=== PATIENT | male | born 1985 | race Hispanic/Latino ===

== ENCOUNTER 2016-08-03 09:00 | Inpatient (IN) | payer MEDICAID, OTHER ==
[2016-08-03 09:00] VITALS: BMI 21.1
[2016-08-03 09:05] VITALS: O2SAT 98
[2016-08-03 10:23] LABS: RBC URINE < 1 /hpf (0-3); URINE BILIRUBIN NEGATIVE (NEGATIVE); URINE BLOOD NEGATIVE (NEGATIVE); URINE COLOR Yellow (YELLOW); URINE GLUCOSE (UA) NORMAL (Normal); URINE KETONE NEGATIVE (NEGATIVE); URINE LEUKOCYTE ESTERASE NEG Leu/uL (Negative); URINE PROTEIN NEGATIVE (NEGATIVE); URINE UROBILINOGEN NORMAL mg/dL (0.2-1.0); WBC URINE 1 /hpf (0-5)
[2016-08-03 10:29] LABS: BASO # 0.1 K/uL (0.0-0.2); BASO % 0.5 % (0.0-2.0); EOS # 0.3 K/uL (0.0-0.7); EOS % 3.2 % (0.0-4.0); HEMATOCRIT 41.3 % (35.0-51.0); LYMPH % 19.5 % (20.0-40.0); MEAN CELL VOLUME 89.6 fL (80.0-94.0); MEAN CORPUSCULAR HEMOGLOBIN 30.8 pg (27.0-31.0); MEAN CORPUSCULAR HGB CONC 34.4 g/dL (33.0-37.0); MEAN PLATELET VOLUME 7.5 fL (7.2-11.7); MONO # 1.3 K/uL (0.0-0.8); MONO % 12.4 % (0.0-10.0); RED CELL DISTRIBUTION WIDTH 12.7 % (11.5-14.5); WHITE BLOOD COUNT 10.2 K/uL (4.8-10.8)
--- NOTE | 2016-08-03 10:35 | C.PDOC ---
History Of Present Illness 30 y/o male presents to the ED requesting detox from heroin. Pt also reports suicidal thoughts and having visual hallucinations, "seeing shadows." Pt last used heroin this morning. Denies suicidal plan or any other complaints. Denies any other drug use. Time Seen by Provider: 08/03/16 09:55 Chief Complaint (Nursing): Substance Abuse History Per: Patient History/Exam Limitations: no limitations Onset/Duration Of Symptoms: Hrs Current Symptoms Are (Timing): Still Present Suicide/Self Injury Attempted (Context): None Modifying Factor(s): Narcotics Severity: Mild Associated Symptoms: Suicidal Thoughts. denies: Suicidal Plan Involuntary Hold By: None Recent travel outside of the [place]: No Past Medical History Reviewed: Historical Data, Nursing Documentation, Vital Signs Vital Signs: Last Vital Signs Temp 98.4 F 08/03/16 09:04 Pulse 82 08/03/16 09:04 Resp 20 08/03/16 09:04 BP 136/87 08/03/16 09:04 Pulse Ox 98 08/03/16 10:39 - Medical History PMH: Asthma - [facility] Procedures INJECT/INFUSE NEC (02/21/05) Family History: States: Unknown Family Hx - Social History Hx Alcohol Use: No Hx Substance Use: Yes Review Of Systems Psych: Positive for: Suicidal ideation, Other (visual hallucinations) Physical Exam - Physical Exam Appears: Non-toxic, No Acute Distress, Other (no signs of withdrawal) Skin: Warm, Dry, No Rash Head: Atraumatic, Normacephalic Throat: Normal Neck: Normal, Normal ROM, Supple Chest: Symmetrical Cardiovascular: Rhythm Regular, No Murmur Respiratory: Normal Breath Sounds, No Rales, No Rhonchi, No Wheezing Gastrointestinal/Abdominal: Normal Exam, Soft, No Tenderness Extremity: Bilateral: Atraumatic Neurological/Psych: Oriented x3, Normal Speech ED Course And Treatment - Laboratory Results Result Diagrams: 08/03/16 10:34 08/03/16 10:16 O2 Sat by Pulse Oximetry: 98 (room air) Pulse Ox Interpretation: Normal Medical Decision Making Medical Decision Making: Labs ordered and reviewed. In my clinical judgment patient is medically cleared and stable for psychiatric admission. cannery worker contacted for evaluation. As per CW patient is to be admitted. Patient will be admitted under Dr Dewitt service for depression and opiate dependence Disposition - Disposition Disposition: HOSPITALIZED Disposition Time: 11:10 Condition: STABLE - POA Present On Arrival: None - Clinical Impression Clinical Impression: Depression, Opiate dependence - PA / NUCLEAR PROCESS ENGINEER / Resident Statement MD/DO has reviewed & agrees with the documentation as recorded. - Scribe Statement The provider has reviewed the documentation as recorded by the Scribfanny Goddard All medical record entries made by the Michaelibfanny were at my direction and personally dictated by me. I have reviewed the chart and agree that the record accurately reflects my personal performance of the history, physical exam, medical decision making, and the department course for this patient. I have also personally directed, reviewed, and agree with the discharge instructions and disposition. Decision To Admit - Pt Status Changed To: Hospital Disposition Of: Inpatient - Admit Certification Admit to Inpatient:: After my assessment, the patient will require hospitalization for at least two midnights. This is because of the severity of symptoms shown, intensity of services needed, and/or the medical risk in this patient being treated as an outpatient. - InPatient: Physician Admission Certification: I certify that this patient requires 2 or more midnights of care for the following reason:: Patient with depression and expressed suicidal thoughts. Patient will be admitted under Dr Dewitt service - . Bed Request Type: Psychiatry Admitting Physician: Katherin Dewitt Patient Diagnosis: Opiate dependence, Depression
[2016-08-03 10:39] LABS: CHLORIDE 89 mmol/L (98-107)
[2016-08-03 10:40] LABS: POTASSIUM 4.2 mmol/L (3.6-5.2); SODIUM 132 mmol/L (132-148)
[2016-08-03 10:42] LABS: ALB/GLOB RATIO 1.7 (1.0-2.1); ALKALINE PHOSPHATASE 59 U/L (38-126); AST/SGOT 100 U/L (17-59); BILIRUBIN,TOTAL 0.8 mg/dL (0.2-1.3); CARBON DIOXIDE 32 mmol/L (22-30); GFR AFRICAN-AMERICAN > 60; TOTAL PROTEIN 7.6 g/dL (6.3-8.3)
[2016-08-03 10:43] LABS: ALCOHOL SERUM < 10 mg/dl (0-10); ALT/SGPT 225 U/L (21-72); BLOOD UREA NITROGEN 10 mg/dL (9-20); GLUCOSE,RANDOM 132 mg/dL (75-110)
[2016-08-03] MEDS ORDERED: Aluminum Hydroxide/Magnesium Hydroxide Susp (30 mL) PO PRN (12:15)
--- NOTE | 2016-08-03 12:18 | PCM.PSYCH ---
Initial Psychiatric Evaluation - Initial Psychiatric Evaluation Type of Admission: Voluntary Legal Status: Capacity Chief Complaint (in patient's own words): I was feeling depressed and suicidal' History of Present Illness and Precipitating Events: This is a 30 yo CM, single currently homeless and unemployed, who came to the [facility] ED because of suicidal ideation with plan to overdose on heroin. Patient reports that he was discharged from [facility] almost 2 years ago. Soon after discharge from the hospital he stopped taking medication and relapsed on heroin. Patient reports of sniffing almost 10 bags of heroin on a daily basis. Yesterday he abused 10 bags of heroin became increasingly depressed and developed suicidal ideation with plan to overdose, so he came to the hospital to get help. He reports depressed mood, feelings of hopelessness and helplessness poor sleep and poor appetite. He denies any auditory or visual hallucinations and denies any manic or psychotic symptoms. He reports withdrawal symptoms including anxiety, headaches, nausea, vomiting, abdominal cramps and back pain. He denies any other substance abuse. Past medical history None reported Current Medications: Active Medications Generic Name Dose Route Start Last Admin Trade Name Freq PRN Reason Stop Dose Admin Al Hydrox/Mg Hydrox/Simethicone 30 ml 08/03/16 12:15 Maalox 30 Ml PO TID PRN Indigestion / Heartburn Clonidine HCl 0.1 mg 08/03/16 12:15 Catapres PO Q8 PRN COWS Score More or Equal to 5 Diphenhydramine HCl 50 mg 08/03/16 12:17 Benadryl PO Q6 PRN Extra Pyramidal Symptoms Hydroxyzine HCl 25 mg 08/03/16 12:17 Atarax PO Q6 PRN Agitation Loperamide HCl 2 mg 08/03/16 12:15 Imodium PO Q8 PRN Diarrhea Methadone HCl 20 mg 08/03/16 12:15 Methadone PO 08/03/16 12:16 ONCE ONE Nicotine 1 patch 08/03/16 12:15 Nicoderm Cq TD DAILY ELOISE Ondansetron HCl 4 mg 08/03/16 12:15 Zofran Tab PO Q8 PRN Nausea/Vomiting Pneumococcal Polyvalent Vaccine 0.5 ml 08/06/16 10:00 Pneumovax 23 Vaccine IM 08/06/16 10:01 .ONCE ONE Trazodone HCl 50 mg 08/03/16 22:00 Desyrel PO HS ELOISE Past Psychiatric History - Past Psychiatric History Previous Treatment History: Inpatient Pertinent Medical Hx (Current Medical&Sleep Prob, Allergies): Allergies Allergy/AdvReac Type Severity Reaction Status Date / Time No Known Allergies Allergy Verified 08/03/16 09:04 Albuterol HFA [Ventolin HFA 90 mcg/actuation (8 g)] 2 puff INH BID 12/27/13 No Known Home Med [No Known Home Med] 09/14/14 Review of Systems - Review of Systems All systems: reviewed and no additional remarkable complaints except - Psychiatric Psychiatric: Anxiety, Irritability, Suicidal Ideation Mental Status Examination - Personal Presentation Personal Presentation: Looks stated age - Affect Affect: Constricted, Depressed - Motor Activity Motor Activity: Calm - Reliability in Providing Information Reliability in Providing Information: Good - Speech Speech: Organized - Mood Mood: Depressed, Anxious - Formal Thought Process Formal Thought Process: No Impairment - Obsessions/Compulsions Obsessions: No Compulsions: No - Cognitive Functions Orientation: Person, Place, Situation, Time Sensorium: Alert Attention/Concentration: Attentive Abstract Thinking: Sheridan Estimate of Intelligence: Below average Judgement: Imparied, as evidence by: Poor judgement, Imparied, as evidence by: Lack of insight into illness - Risk Risk: Suicidal, Withdrawal, Diminished functioning - Limitations Limitations: Living alone DSM 5 DX - DSM 5 DSM 5 Diagnosis: 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 Opiate use disorder severe Opiate withdrawal - Recommended/Plan of Treatment Treatment Recommendations and Plan of Treatment: 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
--- NOTE | 2016-08-04 15:51 | PCM.PYCHPN ---
Psychiatric Progress Note - Psychiatric Progress Note Patient seen today, length of contact: 16 min Patient Chief Complaint: I'm still feeling depressed Problems Identified/Issues Discussed: Patient seen and evaluated, chart reviewed and discussed with the nurse. As per the staff, patient still appears isolated, depressed and withdrawn. Patient still reports depressed mood and reports at times feelings of hopelessness or helplessness. He reports withdrawal symptoms including cramps, back pain and sweating. He is compliant with medications and denies any side effects. Supportive therapy and psychoeducation were given. Medication Change: Yes (Methadone taper) Medical Record Reviewed: Yes Mental Status Examination - Cognitive Function Orientation: Person, Place, Situation, Time Memory: Intact Attention: WNL Concentration: Poor Association: WNL Fund of Knowledge: Poor - Mood Mood: Depressed, Anxious - Affect Affect: Constricted, Depressed - Speech Speech: Soft - Formal Thought Process Formal Thought Process: No Impairment - Suicidal Ideation Suicidal Ideation: No - Homicidal Ideation Homicidal Ideation: No Goal/Treatment Plan - Goal/Treatment Plan Need for Continued Stay: Discharge may exacerbated symptoms, Severe functional impairment, Other Progress Toward Problem(s) and Goals/Treatment Plan: 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
[2016-08-05 07:59] VITALS: RESP 20; TEMP 98.3
--- NOTE | 2016-08-05 11:12 | PCM.PYCHPN ---
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
--- NOTE | 2016-08-05 11:46 | PCM.PYCHDC ---
Mental Status Examination - Mental Status Examination Orientation: Person, Place, Situation, Time Memory: Intact Mood: Neutral Affect: Constricted Speech: Soft Attention: WNL Concentration: WNL Association: WNL Fund of Knowledge: WNL Formal Thought Process: No Impairment Description of patient's judgement and insight: good, fair Psychotic Thoughts and Behaviors: denies any AVH Suicidal Ideation: No Current Homicidal Ideation?: No Discharge Summary - Discharge Note Reason for Hospitalization: This is a 30 yo CM, single currently homeless and unemployed, who came to the [facility] ED because of suicidal ideation with plan to overdose on heroin. Patient reports that he was discharged from [facility] almost 2 years ago. Soon after discharge from the hospital he stopped taking medication and relapsed on heroin. Patient reports of sniffing almost 10 bags of heroin on a daily basis. Yesterday he abused 10 bags of heroin became increasingly depressed and developed suicidal ideation with plan to overdose, so he came to the hospital to get help. He reports depressed mood, feelings of hopelessness and helplessness poor sleep and poor appetite. He denies any auditory or visual hallucinations and denies any manic or psychotic symptoms. He reports withdrawal symptoms including anxiety, headaches, nausea, vomiting, abdominal cramps and back pain. He denies any other substance abuse. Consultations:: List each consultation separately and include: 1. Reason for request. 2. Findings. 3. Follow-up Summary of Hospital Course include:: 1. Description of specific treatment plan utilized for patients during their course of treatmen. 2. Summarize the time- course for resolution of acute symptoms and/or regressed behaviors. 3. Describe issues identified and worked on during hospitalization. 4. Describe medication utilized. 5. Describe medical problems identified and treated. 6. Reassessment of suicide risk Summary of Hospital Course: During the course of his stay, patient (pt) started progressively improving and he no longer remained irritable, depressed, and suicidal. His mood was improved and he started attending groups and meetings and started socializing. Patient denied any feelings of hopelessness, helplessness, and worthlessness, denied any problem with the sleep or appetite, denied suicidal ideation or homicidal ideation. Pt denied any auditory or visual hallucinations. Some changes were made in his current medications and patient was discharged on following medications. He tolerated these medications very well and denied any side effects. CBT and NC were used. Pt wanted to go to attend an IOP program. 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 Pt was educated and counseled about the risks of drinking and abusing drugs. Pt was educated and counseled to go to the ER or call 911 if pt develop suicidal ideation or homicidal ideation, worsening of symptoms or severe side effects of the meds. Prescriptions/Medication Reconciliation: Citalopram [celeXA] 10 mg PO DAILY #30 tab traZODone [Desyrel] 50 mg PO HS #30 tab - Smoking Cessation Smoking Cessation Medication prescribed: No - Antipsychotic Medications Pt discharged on 2 or more routine antipsychotic medications: No
[2016-08-05 13:30] VITALS: BP 120/76; PULSE 85
[2016-08-06] MEDS ORDERED: Pneumococcal 23-Valent Vaccine IM ONE (10:00)
== END 2016-08-05 14:23 | disposition home or self-care (01) | DRG 895 ==
LOC: C.ER 09:00 → C.9E 11:09 → C.5E 11:27
PROVIDERS: ADMIT Psychiatry & Neurology Psychiatry; ATTEND Psychiatry & Neurology Psychiatry
PROC: HZ2ZZZZ Detoxification Services for Substance Abuse Treatment (ICD-10-PCS; principal; 2016-08-03)
PROC: HZ52ZZZ Individual Psychotherapy for Substance Abuse Treatment, Cognitive-Behavioral (ICD-10-PCS; 2016-08-03)
PROC: HZ46ZZZ Group Counseling for Substance Abuse Treatment, Psychoeducation (ICD-10-PCS; 2016-08-03)
PROC: HZ59ZZZ Individual Psychotherapy for Substance Abuse Treatment, Supportive (ICD-10-PCS; 2016-08-03)
PROC: HZ56ZZZ Individual Psychotherapy for Substance Abuse Treatment, Psychoeducation (ICD-10-PCS; 2016-08-03)
DX: F11.23 Opioid dependence with withdrawal (principal); R45.851 Suicidal ideations; F33.2 Major depressive disorder, recurrent severe without psychotic features; Z59.0 Homelessness; F41.9 Anxiety disorder, unspecified

== ENCOUNTER 2016-10-26 18:00 | Inpatient (IN) | payer OTHER ==
[2016-10-26 18:00] VITALS: BMI 21.1
[2016-10-26 19:42] LABS: BASO # 0.1 K/uL (0.0-0.2); BASO % 0.8 % (0.0-2.0); EOS # 0.2 K/uL (0.0-0.7); EOS % 2.5 % (0.0-4.0); HEMATOCRIT 40.3 % (35.0-51.0); LYMPH # 2.3 K/uL (1.0-4.3); LYMPH % 26.8 % (20.0-40.0); MEAN CELL VOLUME 86.8 fL (80.0-94.0); MEAN CORPUSCULAR HEMOGLOBIN 30.4 pg (27.0-31.0); MEAN CORPUSCULAR HGB CONC 35.1 g/dL (33.0-37.0); MEAN PLATELET VOLUME 7.3 fL (7.2-11.7); MONO # 0.7 K/uL (0.0-0.8); MONO % 8.5 % (0.0-10.0); RED CELL DISTRIBUTION WIDTH 12.4 % (11.5-14.5); WHITE BLOOD COUNT 8.7 K/uL (4.8-10.8)
[2016-10-26 19:54] LABS: ALB/GLOB RATIO 1.3 (1.0-2.1); ALCOHOL SERUM < 10 mg/dl (0-10); ALKALINE PHOSPHATASE 59 U/L (38-126); ALT/SGPT 143 U/L (21-72); AST/SGOT 89 U/L (17-59); BILIRUBIN,TOTAL 0.6 mg/dL (0.2-1.3); BLOOD UREA NITROGEN 15 mg/dL (9-20); CALCIUM 9.4 mg/dl (8.6-10.4); CARBON DIOXIDE 31 mmol/L (22-30); CHLORIDE 95 mmol/L (98-107); GFR AFRICAN-AMERICAN > 60; GLUCOSE,RANDOM 90 mg/dL (75-110); POTASSIUM 3.8 mmol/L (3.6-5.2); RBC URINE 1 /hpf (0-3); SODIUM 137 mmol/L (132-148); URINE BACTERIA RARE (<OCC); URINE BILIRUBIN NEGATIVE (NEGATIVE); URINE BLOOD NEGATIVE (NEGATIVE); URINE GLUCOSE (UA) NORMAL (Normal); URINE KETONE TRACE mg/dL (NEGATIVE); URINE LEUKOCYTE ESTERASE NEG Leu/uL (Negative); URINE PROTEIN NEGATIVE (NEGATIVE); URINE UROBILINOGEN NORMAL mg/dL (0.2-1.0); WBC URINE 1 /hpf (0-5)
--- NOTE | 2016-10-26 20:02 | C.PDOC ---
History Of Present Illness 31 y/o male, with PMHx of heroin abuse, presents to the ED requesting heroin detox. Patient notes his last use was prior to arrival. Patient has no other complaints at this time. Time Seen by Provider: 10/26/16 18:55 Chief Complaint (Nursing): Substance Abuse History Per: Patient History/Exam Limitations: no limitations Onset/Duration Of Symptoms: Hrs Current Symptoms Are (Timing): Still Present Suicide/Self Injury Attempted (Context): None Modifying Factor(s): Other (heroin ) Involuntary Hold By: None Recent travel outside of the [place]: No Additional History Per: Patient Past Medical History Reviewed: Historical Data, Nursing Documentation, Vital Signs Vital Signs: Last Vital Signs Temp 99.2 F 10/26/16 21:03 Pulse 61 10/26/16 21:03 Resp 18 10/26/16 21:03 BP 114/70 10/26/16 21:03 Pulse Ox 98 10/26/16 21:03 - Medical History PMH: Asthma, Depression Surgical History: No Surg Hx - [facility] DETOXIFICATION SERVICES FOR SUBSTANCE ABUSE TREATMENT (08/03/16) GROUP AMMONIA NITRATE OPERATOR FOR SUBSTANCE ABUSE TREATMENT, PSYCHOEDUCATION (08/03/16) INDIV PSYCHOTHERAPY FOR SUBSTANCE ABUSE TREATMENT, SUPPORT (08/03/16) INDIV PSYCHOTHERAPY FOR SUBSTANCE ABUSE, COGNITIV BEHAVIORAL (08/03/16) INDIV PSYCHOTHERAPY FOR SUBSTANCE ABUSE, PSYCHOEDUCATION (08/03/16) INJECT/INFUSE NEC (02/21/05) Family History: States: Unknown Family Hx - Social History Hx Alcohol Use: No Hx Substance Use: No Review Of Systems Psych: Positive for: Other (+heroin detox ) Physical Exam - Physical Exam Appears: Non-toxic, No Acute Distress Skin: Normal Color, Warm, Dry Head: Atraumatic, Normacephalic Eye(s): bilateral: Normal Inspection Oral Mucosa: Moist Neck: Supple Chest: Symmetrical, No Deformity, No Tenderness Cardiovascular: Rhythm Regular, No Murmur Respiratory: Normal Breath Sounds, No Rales, No Rhonchi, No Wheezing Gastrointestinal/Abdominal: Soft, No Tenderness, No Guarding, No Rebound Back: Normal Inspection Extremity: Normal ROM, Capillary Refill (less than 2 seconds ) Neurological/Psych: Normal Speech, Normal Cognition Gait: Steady ED Course And Treatment - Laboratory Results Result Diagrams: 10/26/16 19:38 10/26/16 19:38 O2 Sat by Pulse Oximetry: 99 (on RA) Pulse Ox Interpretation: Normal Medical Decision Making Medical Decision Making: Impression: 31 y/o male requesting heroin detox Plan: * labs Progress: labs ordered and reviewed. Patient later threatened to hurt himself if he gets discharged from the ED. 20:30: Patient has been medically cleared for detox. Disposition - Disposition Disposition: HOSPITALIZED Disposition Time: 21:25 Condition: STABLE Forms: [facility] (Belarusian) - Clinical Impression Clinical Impression: Depression - Scribe Statement The provider has reviewed the documentation as recorded by the Scribe (Aurora Rodriguez) Provider Attestation: All medical record entries made by the Scribe were at my direction and personally dictated by me. I have reviewed the chart and agree that the record accurately reflects my personal performance of the history, physical exam, medical decision making, and the department course for this patient. I have also personally directed, reviewed, and agree with the discharge instructions and disposition. Decision To Admit - Pt Status Changed To: Hospital Disposition Of: Inpatient - Admit Certification Admit to Inpatient:: After my assessment, the patient will require hospitalization for at least two midnights. This is because of the severity of symptoms shown, intensity of services needed, and/or the medical risk in this patient being treated as an outpatient. - InPatient: Physician Admission Certification: I certify that this patient requires 2 or more midnights of care for the following reason:: pt with depression, needs inpt pysch, si - . Bed Request Type: Regular Admitting Physician: Katherin Dewitt Patient Diagnosis: Depression
[2016-10-26 20:39] LABS: URINE COLOR YELLOW (YELLOW)
--- NOTE | 2016-10-26 22:20 | PCM.BM ---
Treatment assets and liabiliti Patient Assests: cooperative, ADL independent, negotiates basic needs, cognitively intact Patient Liabilities: live alone, poor support system, substance abuse - Milieu Protocol Maintain good personal hygiene: daily Encourage regular showers, daily Remind patient to perform daily oral care, daily Assist patient to perform ADL's Conduct patient checks and document Observation sheet: Q15 minutes Maintain personal safety: every shift Educate patient to report safety concerns to staff, every shift Monitor environment for contraband/sharps Medication safety: Monitor for expected outcome, potential side effects: every shift, Assess barriers to learning: every shift, Assess readiness for medication education: every shift
--- NOTE | 2016-10-26 22:43 | PCM.BM ---
<Zoey Matta - Last Filed: 10/26/16 22:41> Treatment Plan Problems - Problems identified on initial assessmt depression Date Initiated: 10/26/16 Time Initiated: 22:00 Assessment reference: NA Status: Active Treatment assets and liabiliti Patient Assests: cooperative, ADL independent, negotiates basic needs, cognitively intact Patient Liabilities: live alone, poor support system, substance abuse - Milieu Protocol Maintain good personal hygiene: daily Encourage regular showers, daily Remind patient to perform daily oral care, daily Assist patient to perform ADL's Conduct patient checks and document Observation sheet: Q15 minutes Maintain personal safety: every shift Educate patient to report safety concerns to staff, every shift Monitor environment for contraband/sharps Medication safety: Monitor for expected outcome, potential side effects: every shift, Assess barriers to learning: every shift, Assess readiness for medication education: every shift <Komal Moore - Last Filed: 10/27/16 10:34> Family Contact Family involvement: Family/SO is involved Family contact: Patient declines to allow family contact at present - Goals for Treatment Patient goals for treatment: "I want to go to rehab." Discharge/Continuing Care - Education Needs Education Needs: Patient Medication, Patient Coping Skills, Patient Placement options, Patient Community resources - Discharge Discharge Criteria: Tolerates medication w/o severe side effects, No longer exhibiting s/s of withdrawal Discharge to:: Substance Abuse Rehab - Treatment Team Participation Discussed with Family/SO: No Was Patient/Family/SO present at Treatment Team Meeting: Yes <Juan Carlos Najera - Last Filed: 10/27/16 23:39> - Diagnosis (1) Opioid use disorder, severe, dependence Status: Acute Interventions: 10/27/16 23:38 * Assess 7x/week regarding severity of withdrawal * Educate regarding risks, benefits, side effects and alternatives of medications * Use Motivational Interviewing for abstinence * Use CBT for relapse prevention * Medication management for withdrawal symptoms * Encourage medication assisted treatment * (2) Depression Status: Acute Interventions: 10/27/16 23:39 * Assess/adjust medications daily and /or as needed * See patient on an individual basis 7x/week to assess symptoms of depression * Monitor for side effects & effectiveness of medications *
[2016-10-26] MEDS ORDERED: Aluminum Hydroxide/Magnesium Hydroxide Susp (30 mL) PO PRN (22:59)
--- NOTE | 2016-10-27 15:35 | PCM.PSYCH ---
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 He expresses concern that he could lose his job due to his hospitalization. Patient came to the hospital for detox but felt vaguely suicidal when informed that detox was full, and was subsequently admitted to the psych unit. He reports using 15 bags of IV heroin per day for the past couple of weeks. First time use in his life was 10 years ago. Last use was yesterday morning. Longest period of sobriety was for 14 months while he was at the [facility] in [place], [place]. Patient also smokes cigarettes 1ppd. Denies use of painkillers, cocaine, marijuana, alcohol, sedatives, hypnotics or anxiolytics. At present he denies withdrawal symptoms. Patient states that he is not depressed right now. He was admitted to the psych unit at this hospital in July 2016 but states that he did not see a psychiatrist after that admission. He also says that he was on Lexapro for depression 6-7 months ago. Notes that he has a history of detox 3-4x and rehab 2 -3x. He has never been on methadone maintenance therapy. He was previously on Subutex but states it "didn't work" and he started using again while he was on it. Patient states that he has submitted paperwork for a program in [place] but is not sure if he wants to go there yet. He does not yet know if he was accepted. 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 [employer] Current Medications: Active Medications Generic Name Dose Route Start Last Admin Trade Name Freq PRN Reason Stop Dose Admin Acetaminophen 650 mg 10/26/16 22:59 Tylenol 325mg Tab PO Q4H PRN Fever greater than 101 F Al Hydrox/Mg Hydrox/Simethicone 30 ml 10/26/16 22:59 Maalox 30 Ml PO TID PRN Indigestion / Heartburn Clonidine HCl 0.1 mg 10/26/16 22:59 Catapres PO Q8 PRN COWS Score More or Equal to 5 Loperamide HCl 2 mg 10/26/16 22:59 Imodium PO Q8 PRN Diarrhea Methadone HCl 15 mg 10/27/16 10:00 10/27/16 10:54 Methadone PO 10/31/16 09:59 15 mg Q24H ELOISE Administration Taper Mirtazapine 15 mg 10/27/16 22:00 Remeron PO HS ELOISE Nicotine 1 patch 10/27/16 12:15 10/27/16 12:54 Nicoderm Cq TD 1 patch DAILY ELOISE Administration Ondansetron HCl 4 mg 10/26/16 22:59 Zofran Tab PO Q8 PRN Nausea/Vomiting Trazodone HCl 50 mg 10/26/16 23:00 10/26/16 22:52 Desyrel PO Not Given HS ELOISE Past Psychiatric History - Past Psychiatric History Pertinent Medical Hx (Current Medical&Sleep Prob, Allergies): Allergies Allergy/AdvReac Type Severity Reaction Status Date / Time No Known Allergies Allergy Verified 08/03/16 09:04 Albuterol HFA [Ventolin HFA 90 mcg/actuation (8 g)] 2 puff INH BID 12/27/13 Citalopram [celeXA] 10 mg PO DAILY #30 tab 08/05/16 traZODone [Desyrel] 50 mg PO HS #30 tab 08/05/16 Review of Systems - Neurological Neurological: UNREMARKABLE - Psychiatric Psychiatric: absent: Depression, Homicidal Ideation Mental Status Examination - Personal Presentation Personal Presentation: Looks stated age - Affect Affect: Constricted - Motor Activity Motor Activity: Calm - Reliability in Providing Information Reliability in Providing Information: Fair - Speech Speech: Organized - Mood Mood: Anxious - Formal Thought Process Formal Thought Process: No Impairment - Cognitive Functions Orientation: Person, Place, Situation, Time Sensorium: Drowsy Attention/Concentration: Attentive Abstract Thinking: [place] Estimate of Intelligence: Average Judgement: Intact, as evidence by: Insight regarding need for hospitalization Memory: Recent intact, as evidence by: Ability to recall events of the day, Remote intact, as evidenced by: Abilit to recall sig. life events - Risk Risk: Withdrawal - Strength & Assets Inventory Strength & Assets Inventory: Employment status, Cooperative DSM 5 DX - DSM 5 DSM 5 Diagnosis: Opioid use disorder, severe Opioid withdrawal Adjustment disorder Tobacco use disorder - Recommended/Plan of Treatment Treatment Recommendations and Plan of Treatment: Methadone detox As needed medications and vitamins Attend groups and activities Supportive therapy and psychoeduation [place] for abstinence CBT for relapse prevention Encourage MAT Refer to after care Adjustment disorder - Remeron 15mg PO HS Tobacco use disorder - Nicoderm 1 patch TD daily 33 minutes
[2016-10-27 16:12] VITALS: O2SAT 95
--- NOTE | 2016-10-28 14:49 | PCM.PYCHPN ---
Psychiatric Progress Note - Psychiatric Progress Note Patient seen today, length of contact: 15 minutes Patient Chief Complaint: "I'm alright" Problems Identified/Issues Discussed: The patient was seen, chart reviewed, and case was discussed with staff. Patient is compliant with medications and reports no side effects. He states he is doing okay and slept alright. He says his mood is good and denies suicidal ideation at this time. Patient states that his mom said he could temporarily stay with her until he finds a program or a place to stay. Symptoms are improving but patient needs more time to stabilize. After care discussed--patient encouraged to consider going to the [facility] in [place], [place]. Support and psychoeducation given. Medication Change: Yes (detox changes daily) Medical Record Reviewed: Yes Mental Status Examination - Cognitive Function Orientation: Person, Place, Situation, Time Memory: Intact Attention: WNL Concentration: WNL Association: WNL Fund of Knowledge: WNL - Mood Mood: Anxious - Affect Affect: Constricted - Speech Speech: Appropriate - Formal Thought Process Formal Thought Process: No Impairment - Suicidal Ideation Suicidal Ideation: No - Homicidal Ideation Homicidal Ideation: No Goal/Treatment Plan - Goal/Treatment Plan Need for Continued Stay: Remain at risks for inpatient hospitalization Progress Toward Problem(s) and Goals/Treatment Plan: Methadone detox As needed medications and vitamins Attend groups and activities Supportive therapy and psychoeducation [place] for abstinence CBT for relapse prevention Encourage MAT Refer to after care Adjustment disorder - Remeron 15mg PO HS Tobacco use disorder - Nicoderm 1 patch TD daily
[2016-10-29 07:41] VITALS: BP 100/60; PULSE 59; RESP 18; TEMP 97.5
--- NOTE | 2016-10-29 09:29 | PCM.PYCHDC ---
Mental Status Examination - Mental Status Examination Orientation: Person, Place, Situation, Time Memory: Intact Mood: Anxious Affect: Constricted Speech: Appropriate Attention: WNL Concentration: WNL Association: WNL Fund of Knowledge: WNL Formal Thought Process: No Impairment Suicidal Ideation: No Current Homicidal Ideation?: No Discharge Summary - Discharge Note Reason for Hospitalization: Opioid use disorder, opioid withdrawal, adjustment disorder Psychiatric History (includes Medical, Family, Personal Hx): Personal hx of depression, no family hx of psych illness/substance use Consultations:: List each consultation separately and include: 1. Reason for request. 2. Findings. 3. Follow-up Summary of Hospital Course include:: 1. Description of specific treatment plan utilized for patients during their course of treatmen. 2. Summarize the time- course for resolution of acute symptoms and/or regressed behaviors. 3. Describe issues identified and worked on during hospitalization. 4. Describe medication utilized. 5. Describe medical problems identified and treated. 6. Reassessment of suicide risk Summary of Hospital Course: The patient was admitted and started on treatment with psychotherapy, support, psychoeducation and medications. ND and CBT used. The patient attended groups and activities, as well as milieu therapy. All the risks and benefits of medications are discussed and the patient understood and agreed. The patient improved with the treatments provided. Patient states that he has been sleeping and praying and thinks that his best option is to get out of [place] and go to the program in [place] where he doesn't know anyone and doesn't know how to get drugs. After care discussed with the patient. - Diagnosis (1) Opioid use disorder, severe, dependence Status: Acute (2) Depression Status: Acute - Final Diagnosis (DSM 5) Condition upon Discharge: STABLE DSM 5: Opioid use disorder, severe Opioid withdrawal Adjustment disorder Tobacco use disorder Disposition: HOME/ ROUTINE Follow-up Treatment Plan: Continue medications after discharge. Follow after care plan as discussed. Use relapse prevention skills. Return to ED or call 911 if suicidal, homicidal or symptoms relapse. Stay away from stress, alcohol, drugs. Avoid people and areas where there is easy access to drugs. See primary doctor once a year. - Smoking Cessation Smoking Cessation Medication prescribed: No - Antipsychotic Medications Pt discharged on 2 or more routine antipsychotic medications: No
== END 2016-10-29 09:50 | disposition home or self-care (01) | DRG 744 ==
LOC: C.ER 18:00 → C.5E 21:12
PROVIDERS: ADMIT Psychiatry & Neurology Psychiatry; ATTEND Psychiatry & Neurology Psychiatry
PROC: HZ52ZZZ Individual Psychotherapy for Substance Abuse Treatment, Cognitive-Behavioral (ICD-10-PCS; principal; 2016-10-26)
PROC: HZ2ZZZZ Detoxification Services for Substance Abuse Treatment (ICD-10-PCS; 2016-10-26)
PROC: HZ59ZZZ Individual Psychotherapy for Substance Abuse Treatment, Supportive (ICD-10-PCS; 2016-10-26)
PROC: HZ56ZZZ Individual Psychotherapy for Substance Abuse Treatment, Psychoeducation (ICD-10-PCS; 2016-10-26)
DX: F11.23 Opioid dependence with withdrawal (principal); B19.20 Unspecified viral hepatitis C without hepatic coma; F32.9 Major depressive disorder, single episode, unspecified; J45.909 Unspecified asthma, uncomplicated; F17.210 Nicotine dependence, cigarettes, uncomplicated; F43.20 Adjustment disorder, unspecified; Z59.0 Homelessness